=== PATIENT | male | born 1955 | race Caucasian/White ===

== ENCOUNTER → 2017-09-26 | Outpatient (REF) | payer BC, MEDICARE | LOC: M SFHCCAPE 13:43 | DX: L03.115 Cellulitis of right lower limb (principal) | CPT/HCPCS: 87186 ==

== ENCOUNTER → 2022-10-06 | Outpatient (REF) | payer BC, MEDICARE, OTHER ==
[2022-10-06 18:16] LABS: BLOOD UREA NITROGEN 17 MG/DL (9-23); CREATININE FOR GFR 0.86 MG/DL (0.70-1.30); GLOMERULAR FILTRATION RATE > 60.0 (>49)
== END ==
LOC: M LABDRWCV 17:06
PROVIDERS: ATTEND Physician Assistant Surgical
DX: M54.50 Low back pain, unspecified (principal)

== ENCOUNTER 2024-08-06 14:54 | Emergency (ER) | payer MEDICARE, OTHER ==
[~2024-08-06] VITALS: Ht 182.9 cm; Wt 131.0 kg
[2024-08-06] MEDS ORDERED: GABA-1172 (15:19)
[2024-08-06] MEDS ORDERED: EZET10TA21 (15:19)
[2024-08-06] MEDS ORDERED: ELIQ5TAB PO (15:19)
[2024-08-06] MEDS ORDERED: METO1TAB32 PO (15:19)
[2024-08-06 18:31] VITALS: BP_DIAS 75
[2024-08-06] MEDS: LIDOCAINE 1% MDV 20ML VIAL IM ONE (19:10)
[2024-08-06] MEDS ORDERED: AMOX875T2 PO (20:06)
[2024-08-06] MEDS: AUGMENTIN 875 MG TAB PO ONE (20:23)
[2024-08-06] MEDS: BOOSTRIX VACCINE (TETANUS/DIPHTH/ACEL. PERTUSSIS) 0.5ML SYR IM.IMMUN ONE (20:24)
[2024-08-06] MEDS: NEOSPORIN TOP OINT 15GM TOP ONE (20:47)
[2024-08-06 20:57] VITALS: BP_SYST 170; TEMP 98; O2SAT 97
== END 2024-08-06 21:02 | disposition home or self-care (01) ==
LOC: M ED 14:54
DX: S61.421A Laceration with foreign body of right hand, initial encounter (principal); Y92.019 Unspecified place in single-family (private) house as the place of occurrence of the external cause; Y93.9 Activity, unspecified; Y99.9 Unspecified external cause status; Z88.2 Allergy status to sulfonamides; Z88.6 Allergy status to analgesic agent; Z79.2 Long term (current) use of antibiotics; Z79.01 Long term (current) use of anticoagulants; Z79.899 Other long term (current) drug therapy; Z23 Encounter for immunization